=== PATIENT | female | born 1950 | race African-American/Black ===

== ENCOUNTER 2018-06-18 09:42 | Emergency (ER) | payer MEDICARE, BC ==
[~2018-06-18] VITALS: Ht 165.1 cm; Wt 81.0 kg
[2018-06-18] MEDS ORDERED: TETANUS, DIPHTHERIA, PERTUSSIS VAC/PF 0.5ML (>7YR OLD) IM ONE (13:45)
[2018-06-18] MEDS ORDERED: LIDOCAINE HCL/PF 1% 10 MG/ML 5ML VIAL IJ ONE (13:45)
[2018-06-18] MEDS ORDERED: BACITRACIN ZINC OINT UDPKT TOP ONE (13:45)
[2018-06-18 17:03] VITALS: BP 117/71
== END 2018-06-18 17:05 | disposition home or self-care (01) ==
LOC: ER 10:23
DX: S01.01XA Laceration without foreign body of scalp, initial encounter (principal); W50.0XXA Accidental hit or strike by another person, initial encounter; Y93.89 Activity, other specified; Y92.89 Other specified places as the place of occurrence of the external cause; Y99.8 Other external cause status
CPT/HCPCS: 12001; 90471; 90715; 99283; J3490